=== PATIENT | male | born 1930 | race Two or more races ===

== ENCOUNTER → 2017-08-25 | Emergency (ER) | payer OTHER ==
[~2017-08-25] VITALS: Ht 160 cm; Wt 63.5 kg
[~2017-08-25] MED LIST: AMLODIPINE BESYL5 MG; ASPIR 8181 MG; CALTRATE 600 +1 EACH; CYCLOBENZAPRINE10 MG PO; IRBESARTAN150 MG; KETO10TA2 PO; ORPHENADRINE C100 MG PO; SEPTRA DS TABLE1 TAB PO; SIMVASTATIN20 MG; TRAMADOL HCL-AP1 TAB PO
== END | disposition home or self-care (01) ==
LOC: ER 07:34
DX: M54.2 Cervicalgia (principal); M62.838 Other muscle spasm

== ENCOUNTER 2018-07-24 07:20 | Emergency (ER) | payer OTHER ==
[~2018-07-24] VITALS: Ht 160 cm; Wt 63.5 kg
== END 2018-07-24 08:44 | disposition home or self-care (01) ==
LOC: ER 07:20
DX: M43.6 Torticollis (principal)

== ENCOUNTER 2018-08-30 15:09 | Outpatient (CLI) | payer OTHER | END 2018-08-30 15:21 | disposition home or self-care (01) | LOC: RAD 501 15:09 | DX: M75.102 Unspecified rotator cuff tear or rupture of left shoulder, not specified as traumatic (principal); S53.402A Unspecified sprain of left elbow, initial encounter ==

== ENCOUNTER 2019-06-20 09:35 | Emergency (ER) | payer OTHER ==
[~2019-06-20] VITALS: Ht 160 cm; Wt 63.5 kg
== END 2019-06-20 11:27 | disposition home or self-care (01) ==
LOC: ER 09:35
DX: S50.11XA Contusion of right forearm, initial encounter (principal); S60.211A Contusion of right wrist, initial encounter; X58.XXXA Exposure to other specified factors, initial encounter; Y93.89 Activity, other specified; Y92.89 Other specified places as the place of occurrence of the external cause; Y99.8 Other external cause status